=== PATIENT | female | born 1970 | race Caucasian/White ===

== ENCOUNTER → 2018-10-02 11:44 | Outpatient (CLI) | payer OTHER, SELFPAY ==
--- NOTE | 2018-10-02 11:45 | DI.US.S_ITS ---
PROCEDURE: US ABDOMEN COMPLETE INDICATIONS: RIGHT UPPER QUADRANT PAIN WITH BLOATING TECHNIQUE: Real-time scanning was performed of the abdominal and retroperitoneal organs, with image documentation. COMPARISON: [facility], US, ABDOMEN COMPLETE, 02/17/2016, 8:31. FINDINGS: Liver: Liver is normal in size and homogeneous in echotexture. Echogenic right hepatic lobe mass unchanged measuring 1.2 x 0.9 x 0.9 cm. Gallbladder: No gallstones identified. Normal gallbladder wall. No pericholecystic fluid. Negative sonographic Packer sign. Biliary ducts: Intrahepatic bile ducts are non-dilated. Extrahepatic bile duct caliber measures 5.5 mm. Normal is 6-7 mm or less in diameter, or 10 mm or less post-cholecystectomy. Pancreas: Visualized portions of the pancreas are sonographically normal. Spleen: Spleen is normal in size and homogeneous in echotexture. Kidneys: Kidneys are normal in size and echotexture. Right kidney measures 8.9 cm long; left kidney measures 9.5 cm long. No hydronephrosis or nephrolithiasis. No solid masses. Aorta: Visualized aorta is normal in caliber at less than 3 cm. Iliacs: Proximal common iliac arteries are normal in caliber at less than 2.5 cm. IVC: Intrahepatic inferior vena cava is patent. Miscellaneous: No free abdominal fluid. IMPRESSION: 1. Presumed cavernous hemangioma within the right hepatic lobe unchanged from prior examination dated 02/17/2016. 2. No source for right upper quadrant pain identified. Dictated by: Tom Roper A Interpreted: Mila Bocanegra MD on 10/02/2018 at 15:08 Approved by: Mila Bocanegra MD, PhD on 10/02/2018 at 18:18
== END ==
PROVIDERS: PCP Physician Assistant; Visit Provider Physician Assistant
DX: R10.11 Right upper quadrant pain (principal); R14.0 Abdominal distension (gaseous)
CPT/HCPCS: 76700

== ENCOUNTER → 2018-12-27 08:20 | Outpatient (CLI) | payer OTHER, SELFPAY ==
[2018-12-27 09:08] LABS: Alanine Aminotransferase 24 IU/L (9-52); Albumin 4.7 g/dL (3.5-5.0); Albumin Globulin Ratio 1.7 (1.0-2.8); Alkaline Phosphatase 46 U/L (38-126); Aspartate Aminotransferase 26 IU/L (14-36); BUN Creatinine Ratio 12.5 (6-22); Bilirubin Total 0.5 mg/dL (0.2-1.3); Blood Urea Nitrogen 10 mg/dL (7-17); Calcium 9.2 mg/dL (8.4-10.2); Carbon Dioxide 28 mmol/L (22-32); Chloride 101 mmol/L (98-107); Cholesterol 266 mg/dL (140-199); Estimated Glomerular Filt Rate > 60.0 mL/min (>60); Globulin 2.7 g/dL (1.7-4.1); Glucose 92 mg/dL (70-100); HDL Cholesterol 75 mg/dL (40-60); HEMOLYSIS < 15 (0-50); LDL Cholesterol Calculated 173 mg/dL (<100); Potassium 3.8 mmol/L (3.4-5.1); Sodium 138 mmol/L (137-145); Total Protein 7.4 g/dL (6.3-8.2); Triglycerides 92 mg/dL (35-150)
[2018-12-27 09:43] LABS: Vitamin D 25 Hydroxy (D3) 36.8 ng/mL (30.0-100.0)
[2018-12-27 09:57] LABS: Vitamin B12 518 pg/mL (239-931)
== END ==
PROVIDERS: PCP Physician Assistant; Visit Provider Physician Assistant
DX: E55.9 Vitamin D deficiency, unspecified (principal); L40.9 Psoriasis, unspecified; E53.8 Deficiency of other specified B group vitamins
CPT/HCPCS: 36415; 80053; 80061; 82306; 82607

== ENCOUNTER → 2019-10-25 13:56 | Outpatient (CLI) | payer OTHER, SELFPAY ==
--- NOTE | 2019-10-25 13:57 | DI.MG.S_ITS ---
BILATERAL DIGITAL SCREENING MAMMOGRAM 3D/2D WITH CAD: 10/25/2019 CLINICAL: Routine screening. Comparison is made to exam dated: 06/23/2015 mammogram - [facility]. The tissue of both breasts is heterogeneously dense. This may lower the sensitivity of mammography. Current study was also evaluated with a Computer Aided Detection (CAD) system. No significant masses, calcifications, or other findings are seen in either breast. There has been no significant interval change. IMPRESSION: NEGATIVE There is no mammographic evidence of malignancy. A 1 year screening mammogram is recommended. This exam was interpreted at Station ID: [id number]. NOTE: For mammograms, a report in lay terms will be sent to the patient. Approximately 15% of breast malignancies will not be visualized mammographically. In the management of a palpable breast mass, a negative mammogram must not discourage biopsy of a clinically suspicious lesion. Electronically Signed By: Paulo gomez/jo:10/27/2019 17:25:57 letter sent: Normal Exam ACR BI-RADS Category 1: Negative [id number]
== END ==
PROVIDERS: PCP Physician Assistant; Visit Provider Physician Assistant
DX: Z12.31 Encounter for screening mammogram for malignant neoplasm of breast (principal)
CPT/HCPCS: 77063; 77067

== ENCOUNTER 2019-12-13 09:45 | Emergency (ER) | payer OTHER, SELFPAY ==
[2019-12-13 10:10] VITALS: BP 129/60; PULSE 67; RESP 18; TEMP 36.6; O2SAT 100; BMI 21.8
[2019-12-13 11:28] LABS: Add Manual Diff / Slide Review NO; Basophils Absolute Auto 100 /uL (0-100); Basophils Percent Auto 0.8 % (0-2); Eosinophils Absolute Auto 100 /uL (0-450); Eosinophils Percent Auto 0.9 % (2-4); Hematocrit 38.5 % (36-46); Hemoglobin 12.9 g/dL (12.0-16.0); Lymphocytes Absolute Auto 1700 /uL (1100-4500); Lymphocytes Percent Auto 25.2 % (25-40); Mean Corpuscular HGB Conc 33.5 % (30-36); Mean Corpuscular Hemoglobin 31.6 PG (26-34); Mean Corpuscular Volume 94.2 fL (80-100); Monocytes Absolute Auto 400 /uL (0-900); Monocytes Percent Auto 6.3 % (3-14); Neutrophils Absolute Auto 4500 /uL (1500-7000); Neutrophils Percent Auto 66.8 % (50-75); Platelet Count 264 X10^3/uL (150-400); Red Blood Cell Count 4.09 X10^6/uL (4.0-5.2); Red Cell Distribution Width 12.8 % (11.6-14.8); White Blood Cell Count 6.8 X10^3/uL (4.5-11.0)
--- NOTE | 2019-12-13 11:32 | DI.US.S_ITS ---
PROCEDURE: US ABDOMEN LIMITED INDICATIONS: RIGHT UPPER QUADRANT PAIN TECHNIQUE: Real-time focused scanning was performed of the abdomen, with image documentation. COMPARISON: None. FINDINGS: The liver has a normal echo pattern. Diffusely echogenic lesion in the right lobe measuring 1.2 cm in maximum diameter has the sonographic appearance of a hemangioma. Gallbladder is unremarkable. No gallstones. No gallbladder wall thickening. No dilated ducts. Common duct measures 4.6 mm. Visualized portions of the pancreas are unremarkable IMPRESSION: 1. Incidental hemangioma of the liver. 2. Otherwise unremarkable right upper quadrant ultrasound. Dictated by: Eric Gifford M.D. on 12/13/2019 at 12:49 Approved by: Eric Gifford M.D. on 12/13/2019 at 12:50
--- NOTE | 2019-12-13 11:34 | ED_ITS ---
HPI - Abdominal Pain General Chief Complaint: Abdominal Pain Stated Complaint: Abd pain Time Seen by Provider: 12/13/19 11:18 Source: patient Mode of arrival: Ambulatory History of Present Illness HPI narrative: CC: Right upper quadrant abdominal pain. HPI: The patient is a 49-year-old female comes into the emergency department complaining that she has right upper quadrant pain that she believes is secondary to gallstones. She denies that she has been diagnosed to have gallstones. She admits having a history of fibromyalgia and does not take any medications for pain relief. She manages it naturally. She stated that her pain in the right upper quadrant started on Sunday and has persisted since then. It possibly may be worse with eating. She states that she has chronic back pain unrelated to this but secondary to her fibromyalgia. She denies a history of pancreatitis peptic ulcer disease. She has had nausea without vom iting denies any diarrhea. She has had normal bowel movements. There has been no melena or hematochezia. She denies any fall or injury fever chills or sweats. She is going through menopause and complains of hot flashes. She denies any significant shortness of breath or cough. She has had no melena hematochezia and no urinary symptoms. She does not want any narcotics. Related Data Previous Rx's Medication Instructions Recorded cyanocobalamin (vitamin B-12) 1,000 mcg IM X1 #1 ea 04/19/18 1,000 mcg/mL injection solution dicyclomine 20 mg PO TID #15 tab 12/13/19 ibuprofen 600 mg PO Q6H PRN #20 tab 12/13/19 Allergies Allergy/AdvReac Type Severity Reaction Status Date / Time amoxicillin [AMOXICILLIN] Allergy Severe Hives, Verified 10/08/19 10:30 lethargy, chest pain and throbbing in hands and feet epinephrine [EPINEPHRINE] Allergy Severe HEART Verified 10/08/19 10:30 RACES, BLACK OUT gluten Allergy Severe Diarrhea, Verified 10/08/19 10:30 constipation, fatigue and bloating lactose [LACTOSE] Allergy Severe Diarrhea, Verified 10/08/19 10:30 abdominal cramps and inflammation Penicillins [PENICILLINS] Allergy Severe PASS OUT, Verified 10/08/19 10:30 HIVES Sulfa (Sulfonamide Allergy Severe HIVES, Verified 10/08/19 10:30 Antibiotics) SWOLLEN [SULFA (SULFONAMIDE TONGUE & ANTIBIOTICS)] DRYNESS IN MOUTH codeine [CODEINE] Allergy Intermediate Vomiting Verified 10/08/19 10:30 latex [LATEX] Allergy Intermediate ITCHY, Verified 10/08/19 10:30 Review of Systems Review of Systems Narrative: Her review of systems were all negative except for those mentioned in history of present illness. Patient History Medical History Allergic rhinitis (Chronic) Fibromyalgia (Chronic 2011) Gluten intolerance (Chronic) Psoriasis (Chronic) Shingles outbreak (Resolved 05/2017) Vitamin B deficiency (Chronic 10/2017) Surgical History History of tonsillectomy Status post delivery Status post delivery Status post discectomy Family History Father Age: 72 Heart disease Mental health problem Mother Age: 70 Heart disease High cholesterol Mental health problem Social History Smoking Status: Never smoker second hand exposure: No alcohol intake: current (1 drink a year) substance use type: does not use Smoking Status: Never smoker Exam Narrative Exam Narrative: PHYSICAL EXAM: CONSTITUTIONAL: Awake, Alert, Oriented, Coherent, Cooperative in NAD. Does not appear toxic or ill. HEAD: AT/NC EENT: PERRL, FROM of eyes, no discharge, Oral mucosa is moist and pink, posterior pharynx is without erythema or exudate. NECK: Supple, no obvious JVD, Trachea is midline without stridor, no palpable LN. SPINE: No gross deformity, no palpable tenderness of the cervical, thoracic, lumbar or sacral spine. No CVA tenderness. THORAX: No deformity, retractions, chest wall tenderness, . LUNGS: Clear with symmetrical breath sounds without respiratory distress HEART: Normal heart tones, regular rhythm and rate without murmur. ABDOMEN: The patient's abdomen is mildly tender in the right upper quadrant with minimal guarding no rebound no rigidity. The rest of her abdomen is soft nontender with normal bowel sounds. EXTREMITIES: No edema, cyanosis, deformity or tenderness. SKIN: No rash, bruising, petechiae or purpura. NEURO: Awake, alert, oriented, conversive, cranial nerves II-XII are symmetrical and normal, moves all 4 extremities and is ambulatory Initial Vital Signs Initial Vital Signs: Vital Signs Temperature 97.8 F 12/13/19 10:10 Pulse Rate 67 12/13/19 10:10 Respiratory Rate 18 12/13/19 10:10 Blood Pressure 129/60 12/13/19 10:10 Pulse Oximetry 100 12/13/19 10:10 Course Course Course Narrative: 1134: The patient states that she manages her fibromyalgia and pain naturally. She does not want any opiate narcotics for pain relief. She was informed that I would administer Zofran for the nausea and vomiting and Toradol for her pain and discomfort which are not narcotics. An ultrasound of her gallbladder and right upper quadrant has been ordered. 1251: The patient states that her pain has not changed since being administered the Toradol. We will administer 20 mg of Bentyl. Her ultrasound has been completed however the report remains pending. She was informed of this. 1317: ultrasound of the right upper quadrant reveals no galstones. will obtain a CT scan with contrast. 1408: CT remains pending 1445; CT reveals that the patient has a moderate amount of stool seen within the colon please correlate clinically . Appears constipated according to the radiologist. Orders Ordered: Discontinued Medications Dicyclomine HCl (Bentyl) 20 mg PO NOW ONE Stop: 12/13/19 12:51 Last Admin: 12/13/19 14:19 Dose: Not Given Documented by: ETHAN Ketorolac Tromethamine (Toradol) 30 mg IV NOW ONE Stop: 12/13/19 11:33 Last Admin: 12/13/19 12:00 Dose: 30 mg Documented by: ETHAN Ondansetron HCl (Zofran) 4 mg IV NOW ONE Stop: 12/13/19 11:33 Last Admin: 12/13/19 12:01 Dose: Not Given Documented by: ETHAN Vital Signs Vital signs: Vital Signs - 8 hr 12/13/19 10:10 12/13/19 13:00 Temperature 97.8 F Pulse Rate 67 61 Respiratory Rate 18 16 Blood Pressure 129/60 Blood Pressure [Right Arm] 91/57 L Pulse Oximetry 100 100 MDM - Abdominal Pain Medical Records Attestation: I reviewed the patient's medical records. Lab Data Attestation: I reviewed the patient's lab results. Result diagrams: 12/13/19 11:15 12/13/19 11:15 Labs: Lab Results 12/13/19 12/13/19 12/13/19 Range/Units 11:15 11:15 11:15 WBC 6.8 (4.5-11.0) X10^3/uL RBC 4.09 (4.0-5.2) X10^6/uL Hgb 12.9 (12.0-16.0) g/dL Hct 38.5 (36-46) % MCV 94.2 (80-100) fL MCH 31.6 (26-34) PG MCHC 33.5 (30-36) % RDW 12.8 (11.6-14.8) % Plt Count 264 (150-400) X10^3/uL Neut % (Auto) 66.8 (50-75) % Lymph % (Auto) 25.2 (25-40) % Williamson % (Auto) 6.3 (3-14) % Eos % (Auto) 0.9 L (2-4) % Baso % (Auto) 0.8 (0-2) % Neut # (Auto) 4500 (8877-3552) /uL Lymph # (Auto) 1700 (9289-1073) /uL Williamson # (Auto) 400 (0-900) /uL Eos # (Auto) 100 (0-450) /uL Baso # (Auto) 100 (0-100) /uL PT 11.8 (10.1-12.7) SECONDS INR 1.0 (0.9-1.3) APTT 34 (26.4-36.2) SECONDS Sodium 140 (137-145) mmol/L Potassium 3.7 (3.4-5.1) mmol/L Chloride 102 (98-107) mmol/L Carbon Dioxide 28 (22-32) mmol/L BUN 10 (7-17) mg/dL Creatinine 0.70 (0.52-1.04) mg/dL Estimated GFR > 60.0 (>60) mL/min BUN/Creatinine Ratio 14.3 (6-22) Glucose 86 (70-100) mg/dL Calcium 9.6 (8.4-10.2) mg/dL Total Bilirubin 0.6 (0.2-1.3) mg/dL AST 27 (14-36) IU/L ALT 13 (<35) IU/L Alkaline Phosphatase 59 (38-126) U/L Total Protein 8.2 (6.3-8.2) g/dL Albumin 5.2 H (3.5-5.0) g/dL Globulin 3.0 (1.7-4.1) g/dL Albumin/Globulin Ratio 1.7 (1.0-2.8) Lipase 90 (23-300) U/L Point of care testing: Urine Dip Bedside Urine Glucose Negative Bedside Urine Bilirubin - Negative Bedside Urine Ketone - Negative Urine Specific [place] 1.005 Bedside Urine Occult Blood - Negative Bedside Urine pH 7.5 Bedside Urine Protein - Negative Bedside Urine Urobilinogen - Negative Bedside Urine Nitrite - Negative Bedside Urine Leukocytes - Negative Esterase ECG Data Attestation: I personally reviewed and interpreted this ECG as follows: Interpretation: The patient's EKG obtained on December 13 at 10:5 1:15 a.m. reveals a sinus bradycardia with a ventricular rate of 52. Intervals appear to be normal with a normal QTC. She has normal axis. She has an inverted T-wave in lead V1 no other acute diagnostic ST or T-wave changes. There is no evidence of ischemia. Discharge Plan Departure Patient Disposition: Home Clinical Impression: Abdominal pain, RUQ, Fibromyalgia Constipation Qualifiers: Constipation type: unspecified constipation type Qualified Code(s): K59.00 - Constipation, unspecified Discharge Date/Time: 12/13/19 15:48 Instructions: DI for Constipation Activity Restrictions/Additional Instructions: 1. Drink 2-4 liters of fluid per day 2. Use Bentyl 20 mg tablets 3 times a day as needed for abdominal pain and cramps. #15 3. Follow-up with your primary care physician. 4. Use MiraLax 17 g and below, 1-2 and the lobes per day until you start having bowel movements. Prescriptions: New dicyclomine 20 mg tablet 20 mg PO TID Qty: 15 RF: 0 ibuprofen 600 mg tablet 600 mg PO Q6H PRN (Reason: fever or pain) Qty: 20 RF: 0 No Action cyanocobalamin (vitamin B-12) 1,000 mcg/mL solution 1,000 mcg IM X1 Qty: 1 RF: 5 Referrals: Debbie Christianson PA-C [Primary Care Provider] -
[2019-12-13 11:35] LABS: Prothrombin Time 11.8 SECONDS (10.1-12.7)
[2019-12-13 11:38] LABS: PTT Partial Thromboplastin Tim 34 SECONDS (26.4-36.2)
[2019-12-13 11:40] LABS: Alanine Aminotransferase 13 IU/L (<35); Albumin 5.2 g/dL (3.5-5.0); Albumin Globulin Ratio 1.7 (1.0-2.8); Alkaline Phosphatase 59 U/L (38-126); Aspartate Aminotransferase 27 IU/L (14-36); BUN Creatinine Ratio 14.3 (6-22); Bilirubin Total 0.6 mg/dL (0.2-1.3); Blood Urea Nitrogen 10 mg/dL (7-17); Calcium 9.6 mg/dL (8.4-10.2); Carbon Dioxide 28 mmol/L (22-32); Chloride 102 mmol/L (98-107); Estimated Glomerular Filt Rate > 60.0 mL/min (>60); Glucose 86 mg/dL (70-100); HEMOLYSIS < 15 (0-50); Lipase 90 U/L (23-300); Potassium 3.7 mmol/L (3.4-5.1); Sodium 140 mmol/L (137-145); Total Protein 8.2 g/dL (6.3-8.2)
[2019-12-13] MEDS: KETOROLAC 60 MG/2 ML VIAL 30 MG IV (12:00)
--- NOTE | 2019-12-13 12:01 | PC.NURSE ---
refuses abdulkadir, states Im not nausous.
[2019-12-13 13:00] VITALS: BP 91/57; PULSE 61; RESP 16; O2SAT 100
--- NOTE | 2019-12-13 13:07 | PC.NURSE ---
pt refused library monitor
--- NOTE | 2019-12-13 13:18 | DI.CT.S_ITS ---
PROCEDURE: CT ABDOMEN PELVIS WO CON INDICATIONS: right flank and upper quadrant abdominal pain TECHNIQUE: Noncontrast 5 mm thick sections acquired from the diaphragms to the symphysis. 5 mm thick coronal and sagittal reformats were then performed. For radiation dose reduction, the following was used: automated exposure control, adjustment of mA and/or kV according to patient size. COMPARISON: [facility], , ABDOMEN LIMITED, 12/13/2019, 12:19. FINDINGS: Image quality: Excellent. Lung bases: Lung bases are clear. Heart size is normal. Urinary system: Both kidneys are normal in size. No kidney stones. No hydronephrosis or perinephric fat stranding. Both ureters appear non-dilated throughout their expected courses. Bladder wall thickness is normal; no calcified bladder stones. Other solid organs: Liver is normal in size. Gallbladder wall does not appear thickened. Pancreas is normal in contours. Spleen is normal in size. No adrenal nodules. Peritoneum and bowel: Unenhanced bowel loops demonstrate normal wall thickness and caliber. No free fluid or air. There is a moderate amount stool seen within the colon. Nodes and vessels: No retroperitoneal or mesenteric adenopathy by size criteria. Aorta and inferior vena cava are normal in caliber. Abdominal wall: No ventral hernias. Pelvis: No free pelvic fluid. No inguinal hernias or adenopathy. No significant uterine abnormality is seen. Cystic changes are seen of the adnexal regions, which are considered to be within physiologic limits. Bones: No suspicious bony lesions. No vertebral body compression fractures. IMPRESSION: No findings of stones or obstructive nephropathy can be seen. There is a moderate amount of stool seen within the colon. Please correlate with an underlying history of constipation. Dictated by: Felipe Wahl M.D. on 12/13/2019 at 13:25 Approved by: Felipe Wahl M.D. on 12/13/2019 at 13:28
--- NOTE | 2019-12-13 13:39 | PC.NURSE ---
discussed actions of bentyl in the gut. Patient did not want to take after scanning medication. Medication not given.
[2019-12-13 15:46] VITALS: BP 98/54; PULSE 64; RESP 18; O2SAT 100
== END 2019-12-13 15:48 | disposition home or self-care (01) ==
PROVIDERS: Emergency Provider Emergency Medicine; PCP Physician Assistant
DX: K59.00 Constipation, unspecified (principal); M79.7 Fibromyalgia; R10.11 Right upper quadrant pain
CPT/HCPCS: 36415; 74176; 76705; 80053; 81003; 83690; 85025; 85610; 85730; 93005; 96374; 99284; 99285; J1885

== ENCOUNTER 2024-07-05 00:58 | Emergency (ER) | payer OTHER, SELFPAY ==
[2024-07-05] VITALS (9 sets, daily range): BP systolic 113–134; BP diastolic 57–70; PULSE 58–65; RESP 12–18; TEMP 36.9; O2SAT 99–100; BMI 22.6
--- NOTE | 2024-07-05 01:12 | EKG_ITS ---
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
--- NOTE | 2024-07-05 01:12 | DI.RAD.S_ITS ---
PROCEDURE: XR CHEST 1V INDICATIONS: syncope TECHNIQUE: One view of the chest was acquired. COMPARISON: None. FINDINGS: Surgical changes and devices: Cervical spine fusion hardware. Lungs and pleura: Lungs are clear. No pleural effusions or pneumothorax. Mediastinum: Mediastinal contours appear normal. Heart size is normal. Bones and chest wall: No suspicious bony lesions. Overlying soft tissues appear unremarkable. IMPRESSION: No acute cardiopulmonary abnormality is seen. Dictated by: Daisy Thornton M.D. on 07/05/2024 at 1:48 Approved by: Daisy Thornton M.D. on 07/05/2024 at 1:48
[2024-07-05 01:23] LABS: Add Manual Diff / Slide Review NO; Basophils Absolute Auto 0 /uL (0-100); Basophils Percent Auto 0.3 % (0-2); Eosinophils Absolute Auto 0 /uL (0-450); Eosinophils Percent Auto 0.5 % (2-4); Hematocrit 32.2 % (36-46); Hemoglobin 11.1 g/dL (12.0-16.0); Lymphocytes Absolute Auto 600 /uL (1100-4500); Lymphocytes Percent Auto 12.6 % (25-40); Mean Corpuscular HGB Conc 34.5 % (30-36); Mean Corpuscular Hemoglobin 31.6 PG (26-34); Mean Corpuscular Volume 91.8 fL (80-100); Monocytes Absolute Auto 500 /uL (0-900); Monocytes Percent Auto 10.7 % (3-14); Neutrophils Absolute Auto 3700 /uL (1500-7000); Neutrophils Percent Auto 75.9 % (50-75); Platelet Count 174 X10^3/uL (150-400); Red Cell Distribution Width 12.9 % (11.6-14.8); White Blood Cell Count 4.9 X10^3/uL (4.5-11.0)
[2024-07-05] MEDS: SODIUM CHLORIDE 0.9% 1,000 ML 1000 ML IV (01:29)
--- NOTE | 2024-07-05 01:35 | ED.SYNCOPE ---
HPI - Syncope General Chief Complaint: Syncope Stated Complaint: near sycope Time Seen by Provider: 07/05/24 01:12 Source: patient and EMS Mode of arrival: EMS Limitations: no limitations History of Present Illness HPI narrative: Patient 53-year-old female history of fibromyalgia presents today with a syncopal episode. She been feeling well today. Some body aches and chills. She says sometimes it happens with her fibromyalgia. She was not feeling quite well. She had COVID about 4 weeks ago she said it really bad for her. She does not have any cough sore throat or fever. This evening she got up to go to the bathroom when she quickly passed out. She then started throwing up. She says that before she passed out she really sweaty and lightheaded. EMS also reports that she was diaphoretic upon arrival. No numbness tingling or weakness. She reports significant decreased appetite and food intake over the last day or so but is a very good water drinker and she reports she has been staying hydrated Related Data Previous Rx's Medication Instructions Recorded cyanocobalamin (vitamin B-12) 1,000 mcg IM X1 #1 ea 04/19/18 1,000 mcg/mL injection solution dicyclomine 20 mg tablet 20 mg PO TID #15 tabs 12/13/19 ibuprofen 600 mg tablet 600 mg PO Q6H PRN fever or pain 12/13/19 #20 tabs ondansetron 4 mg disintegrating 4 mg PO Q8H PRN nausea and 07/05/24 tablet vomiting #10 tabs Allergies Allergy/AdvReac Type Severity Reaction Status Date / Time amoxicillin [AMOXICILLIN] Allergy Severe Hives, Verified 10/08/19 10:30 lethargy, chest pain and throbbing in hands and feet epinephrine [EPINEPHRINE] Allergy Severe HEART Verified 10/08/19 10:30 RACES, BLACK OUT gluten Allergy Severe Diarrhea, Verified 10/08/19 10:30 constipation, fatigue and bloating lactose [LACTOSE] Allergy Severe Diarrhea, Verified 10/08/19 10:30 abdominal cramps and inflammation Penicillins [PENICILLINS] Allergy Severe PASS OUT, Verified 10/08/19 10:30 HIVES Sulfa (Sulfonamide Allergy Severe HIVES, Verified 10/08/19 10:30 Antibiotics) SWOLLEN [SULFA (SULFONAMIDE TONGUE & ANTIBIOTICS)] DRYNESS IN MOUTH codeine [CODEINE] Allergy Intermediate Vomiting Verified 10/08/19 10:30 latex [LATEX] Allergy Intermediate ITCHY, Verified 10/08/19 10:30 Patient History Medical History (Updated 07/05/24 @ 03:25 by Nirmala nKight DO) Vitamin B deficiency (10/2017) Gluten intolerance Shingles outbreak (05/2017) Allergic rhinitis Fibromyalgia (2011) Psoriasis Surgical History Status post discectomy Status post delivery Status post delivery History of tonsillectomy Family History Father Age: 76 Heart disease Mental health problem Mother Age: 74 Heart disease High cholesterol Mental health problem Social History Smoking Status: Former smoker second hand exposure: No alcohol intake: current (1 drink a year) substance use type: does not use Smoking Status: Former smoker alcohol intake frequency: 0-2 drinks per day Substance Use Type: does not use Exam Initial Vital Signs Initial Vital Signs: Vital Signs Temperature 98.4 F 07/05/24 01:02 Pulse Rate 65 07/05/24 01:02 Respiratory Rate 16 07/05/24 01:02 Blood Pressure 134/70 07/05/24 01:02 Pulse Oximetry 100 07/05/24 01:02 Oxygen Delivery Method Room Air 07/05/24 01:02 GENERAL: Alert pleasant 53-year-old female not feel and in [no acute] distress. HEENT: Head atraumatic,EOMI, pupils reactive, face symmetric, [moist] mucous membranes CARDIOVASCULAR: Regular rate and rhythm without murmurs, rubs or gallops. RESPIRATORY: Breath sounds equal bilaterally, no wheezes rales or rhonchi. ABDOMEN: Soft, nontender. Normoactive bowel sounds all 4 quadrants. No guarding or rebound. : No CVA tenderness EXTREMITIES: Normal range of motion, no clubbing or edema. Neurovascularly intact NEUROLOGICAL: Alert and oriented x4.Normal gait and speech. Cranial nerves II through XII grossly intact. SKIN: Warm, dry, no laceration, no petechiae, no rashes or lesions. Course Orders Ordered: ED Orders 07/05/24 01:09 Complete Blood Count AUTO DIFF Stat Comprehensive Metabolic Panel Stat Lipase Stat Troponin & CK Cardiac Panel Stat 07/05/24 01:12 XR chest 1V Stat EKG-12 Lead Stat Discontinued Medications Sodium Chloride (Normal Saline 0.9%) 1,000 mls @ 1,000 mls/hr IV BOLUS ONE Stop: 07/05/24 02:11 Last Infusion: 07/05/24 02:29 Dose: Infused Documented By: Admin: 07/05/24 01:29 Dose: 1,000 mls/hr Documented By: MARI Ondansetron HCl (Ondansetron 4 Mg Odt Prepack) 1 bottle MISC DIRECTED ONE Stop: 07/05/24 03:27 Last Admin: 07/05/24 03:52 Dose: 1 bottle Documented By: MARI Vital Signs Vital signs: Vital Signs - 8 hr 07/05/24 01:02 07/05/24 01:03 07/05/24 01:30 Temperature 98.4 F 98.5 F Pulse Rate 65 63 62 Respiratory Rate 16 Blood Pressure 134/70 Pulse Oximetry 100 100 99 Oxygen Delivery Method Room Air 07/05/24 01:32 07/05/24 01:32 07/05/24 02:00 Temperature Pulse Rate 58 L 61 Respiratory Rate 14 18 Blood Pressure 127/60 Pulse Oximetry 100 100 Oxygen Delivery Method 07/05/24 02:00 07/05/24 02:30 07/05/24 02:30 Temperature Pulse Rate 62 Respiratory Rate 15 Blood Pressure 119/65 118/57 L Pulse Oximetry 100 Oxygen Delivery Method 07/05/24 02:45 07/05/24 02:45 07/05/24 03:00 Temperature Pulse Rate 61 Respiratory Rate 16 Blood Pressure 124/62 117/65 Pulse Oximetry 100 Oxygen Delivery Method 07/05/24 03:00 07/05/24 03:30 07/05/24 03:30 Temperature Pulse Rate 61 62 Respiratory Rate 14 12 Blood Pressure 113/59 L Pulse Oximetry 100 99 Oxygen Delivery Method MDM - Syncope Lab Data 07/05/24 01:09 07/05/24 01:09 Labs: Lab Results 07/05/24 Range/Units 01:09 WBC 4.9 (4.5-11.0) X10^3/uL RBC 3.50 L (4.0-5.2) X10^6/uL Hgb 11.1 L (12.0-16.0) g/dL Hct 32.2 L (36-46) % MCV 91.8 (80-100) fL MCH 31.6 (26-34) PG MCHC 34.5 (30-36) % RDW 12.9 (11.6-14.8) % Plt Count 174 (150-400) X10^3/uL Neut % (Auto) 75.9 H (50-75) % Lymph % (Auto) 12.6 L (25-40) % [place]undy % (Auto) 10.7 (3-14) % Eos % (Auto) 0.5 L (2-4) % Baso % (Auto) 0.3 (0-2) % Neut # (Auto) 3700 (5950-3186) /uL Lymph # (Auto) 600 L (3008-4253) /uL Grundy # (Auto) 500 (0-900) /uL Eos # (Auto) 0 (0-450) /uL Baso # (Auto) 0 (0-100) /uL Sodium 131 L (137-145) mmol/L Potassium 3.5 (3.4-5.1) mmol/L Chloride 103 (98-107) mmol/L Carbon Dioxide 23 (22-32) mmol/L BUN 8 (7-17) mg/dL Creatinine 0.68 (0.52-1.04) mg/dL Estimated GFR > 60 (>60) mL/min BUN/Creatinine Ratio 11.8 (6-22) Glucose 92 (70-100) mg/dL Calcium 8.0 L (8.4-10.2) mg/dL Total Bilirubin 0.3 (0.2-1.3) mg/dL AST 26 (14-36) IU/L ALT 17 (<35) IU/L Alkaline Phosphatase 65 (38-126) U/L Total Creatine Kinase 37 (30-135) U/L Troponin I < 0.012 (0.01-0.034) ng/mL Total Protein 6.0 L (6.3-8.2) g/dL Albumin 3.5 (3.5-5.0) g/dL Globulin 2.5 (1.7-4.1) g/dL Albumin/Globulin Ratio 1.4 (1.0-2.8) Lipase 76 (23-300) U/L Point of Care Testing Test Results Negative Urine Dip Bedside Urine Glucose Negative Bedside Urine Bilirubin - Negative Bedside Urine Ketone ++ 40 Urine Specific [place] 1.015 Bedside Urine Occult Blood - Negative Bedside Urine pH 6.5 Bedside Urine Protein - Negative Bedside Urine Urobilinogen - Negative Bedside Urine Nitrite - Negative Bedside Urine Leukocytes - Negative Esterase Imaging Data Chest x-ray: Radiologist's Impression: PROCEDURE: XR CHEST 1V INDICATIONS: syncope TECHNIQUE: One view of the chest was acquired. COMPARISON: None. FINDINGS: Surgical changes and devices: Cervical spine fusion hardware. Lungs and pleura: Lungs are clear. No pleural effusions or pneumothorax. Mediastinum: Mediastinal contours appear normal. Heart size is normal. Bones and chest wall: No suspicious bony lesions. Overlying soft tissues appear unremarkable. IMPRESSION: No acute cardiopulmonary abnormality is seen. Dictated by: Daisy Thornton M.D. on 07/05/2024 at 1:48 ECG Data Attestation: I personally reviewed and interpreted this ECG as follows: Prior ECG tracings: available for review Interpretation: Normal sinus rhythm rate 65 MT interval 136 QRS 76 QTC 430 8 PVC noted no acute ST changes similar to prior MDM Narrative Medical decision making narrative: MDM CC: Syncope Complicating co-morbidities: Fibromyalgia Data collected from: EMS and family Differential considered: Equal CVA cardiac neurogenic Exam documented above, pertinent findings include: Strength equal bilaterally mildly pale but color improved, no lower extremity edema Lab Test results independently reviewed as above. Pertinent findings: CBC no anemia or leukocytosis CMP sodium 131 creatinine 0.68 Troponin negative POC negative Independently reviewed EKG as above sinus rhythm with PVC no ischemia Imaging studies independently reviewed: X-ray no acute cardiopulmonary process Consultations: none Treatments: IV fluids Re-evaluations: Patient has been up to the restroom multiple times not dizzy or lightheaded received 2 L of IV fluid. Neurologically intact overall feeling much better Discussion: Patient 53-year-old female history of fibromyalgia presenting today with body aches weakness and syncopal episode. It sounds as though she stood up and quickly fell down consistent with a vasovagal reaction. There is no evidence of anemia BRITTANY or electrolyte abnormality. She does not have any leukocytosis or documented fever. No evidence of a UTI. We briefly discussed rechecking for COVID but she just had it 4 weeks ago so it does not seem reasonable to check her again. She is neurologically intact not on anticoagulation. No need for head imaging she has no evidence of head trauma on exam. Discussed with her supportive measures and when to return to ED Discharge Plan Departure Patient Disposition: Home Clinical Impression: Vasovagal syncope Instructions: DI for Syncope in Adults (Fainting) Activity Restrictions/Additional Instructions: *You have been diagnosed with syncopal episode *What to do: At this time go home take it easy and rest be sure to stay hydrated avoid the heat *Continue to take medications as directed Zofran 4 mg every 8 hours if needed for nausea or vomiting *Follow up with your primary care provider in 2-3 days or call [phone] *Return to ER if you should have recurrent episode of syncope numbness tingling weakness worsening confusion persistent vomiting or any new, worsening or concerning symptoms Prescriptions: New ondansetron 4 mg tablet,disintegrating 4 mg PO Q8H PRN (Reason: nausea and vomiting) Qty: 10 0RF No Action cyanocobalamin (vitamin B-12) 1,000 mcg/mL solution 1,000 mcg IM X1 Qty: 1 5RF dicyclomine 20 mg tablet 20 mg PO TID Qty: 15 0RF ibuprofen 600 mg tablet 600 mg PO Q6H PRN (Reason: fever or pain) Qty: 20 0RF Referrals: Radha Casarez, NATALIE, [employer] MACHINE OPERATOR [Primary Care Provider] - Stand Alone Forms: Patient Portal/API
[2024-07-05 01:46] LABS: Alanine Aminotransferase 17 IU/L (<35); Albumin 3.5 g/dL (3.5-5.0); Albumin Globulin Ratio 1.4 (1.0-2.8); Alkaline Phosphatase 65 U/L (38-126); Aspartate Aminotransferase 26 IU/L (14-36); BUN Creatinine Ratio 11.8 (6-22); Bilirubin Total 0.3 mg/dL (0.2-1.3); Blood Urea Nitrogen 8 mg/dL (7-17); Carbon Dioxide 23 mmol/L (22-32); Chloride 103 mmol/L (98-107); Creatine Kinase 37 U/L (30-135); Estimated Glomerular Filt Rate > 60 mL/min (>60); Globulin 2.5 g/dL (1.7-4.1); Glucose 92 mg/dL (70-100); HEMOLYSIS < 15 (0-50); Lipase 76 U/L (23-300); Potassium 3.5 mmol/L (3.4-5.1); Sodium 131 mmol/L (137-145)
[2024-07-05 01:58] LABS: Troponin I < 0.012 ng/mL (0.01-0.034)
[2024-07-05] MEDS: ONDANSETRON 4 MG ODT PREPACK 1 BOTTLE MISC (03:52)
== END 2024-07-05 04:02 | disposition home or self-care (01) ==
PROVIDERS: Emergency Provider Emergency Medicine; PCP Nurse Practitioner Family
DX: R55 Syncope and collapse (principal); R42 Dizziness and giddiness; Z86.16 Personal history of COVID-19; M79.7 Fibromyalgia
CPT/HCPCS: 71045; 80053; 81003; 81025; 82550; 83690; 84484; 85025; 93005; 93010; 96360; 99284

== ENCOUNTER → 2024-08-18 08:15 | Outpatient (CLI) | payer OTHER, SELFPAY ==
--- NOTE | 2024-08-18 08:18 | DI.ECHO.S_ITS ---
[facility] : : [address] : : [place] : : [id number] : : Phone: [phone] Echocardiogram Report + + :Name: JUNE STORM Study Date: 08/18/2024 Height: 59 in : :[facility] : Weight: 104 lb : : Gender: Female BSA: 1.4 m2 : :: 1970 Age: 54 yrs BP: 126/76 mmHg: :Reason For Study: SYNCOPE AND COLLAPSE : :Ordering Physician: : :DEYVI LOCO Performed By: Larry Lehman : :Referring: UNSPECIFIED : + + Interpretation Summary 1. The left ventricular contractility is normal. Estimate ejection fraction is greater than 55% with no segmental wall motion abnormalities. No LVH. Normal diastolic function. 2. The right ventricle contractility is normal. 3. The left atrium is mildly dilated. All other cardiac chambers are of normal size. 4. No significant valvular abnormalities. 5. No obvious intracardiac shunts. 6. No obvious ventricular masses nor thrombi. 7. No hemodynamically significant pericardial effusion. 8. Low right-sided filling pressures. Conclusion: Normal biventricular function with no significant valvular abnormalities. Procedure: A two-dimensional transthoracic echocardiogram with color flow and Doppler was performed. The study quality was technically good. There is no prior echocardiogram noted for this patient. The patient was in normal sinus rhythm during the exam. Left Ventricle: The left ventricle is normal in size. There is normal left ventricular wall thickness. There is no ventricular septal defect visualized. The ejection fraction is estimated to be 60-65%. There are no focal wall motion abnormalities. Right Ventricle: The right ventricle is normal in size and function. Atria: The left atrium is mildly dilated. Right atrial size is normal. There is no Doppler evidence for an atrial septal defect. Mitral Valve: The mitral valve is normal in structure and function. There is trace mitral regurgitation. Aortic Valve: The aortic valve is trileaflet. The aortic valve opens well. No aortic regurgitation is present. Tricuspid Valve: The tricuspid valve is normal in structure and function. There is trace tricuspid regurgitation. Pulmonic Valve: The pulmonic valve is normal in structure and function. There is trace pulmonic regurgitation. Great Vessels: The aortic root is normal size. The dimensions of the ascending aorta are normal. The pulmonary artery is normal size. The IVC is of normal diameter and collapses greater than 50% with a sniff. This suggests a low right atrial pressure of 3 mm Hg. Pericardium/ Pleura There is no pericardial effusion. There is no pleural effusion. MMode/2D Measurements & Calculations LVIDd: 4.5 cm LVOT diam: 1.8 cm LVIDs: 2.9 cm Ao root diam: 2.4 cm FS: 35.6 % asc Aorta Diam: 3.0 cm EPSS: 0.39 cm Ao Arch Diam (Prox Trans): 1.6 cm IVSd: 0.68 cm LVPWd: 0.63 cm LV colindres. diameter/BSA (cm/m^2): 3.2 LV sys. diameter/BSA (cm/m^2): 2.1 LA A2 area: 18.0 cm2 RA long axis: 3.6 cm LA A4 area: 19.0 cm2 RA area: 9.5 cm2 LA length (vol): 5.2 cm RA vol: 21.5 ml LA vol: 56.2 ml RA : 15.4 ml/m2 LA vol index: 40.2 ml/m2 IVC diam: 1.7 cm RVD1 (basal): 3.3 cm RVD2 (mid): 2.5 cm TAPSE: 2.8 cm Doppler Measurements & Calculations Ao V2 max: 153.8 cm/sec LVOT Max Shon: 104.1 cm/sec Ao V2 mean: 109.2 cm/sec LV V1 max P.3 mmHg Ao max P.5 mmHg LV V1 VTI: 23.0 cm Ao mean P.3 mmHg JHOAN(I,D): 1.5 cm2 Ao V2 VTI: 38.6 cm JHOAN(V,D): 1.7 cm2 sev ratio: 0.59 JHOAN indexed to BSA (cm^2/m^2): 1.1 MV E max shon: 76.8 cm/sec PA V2 max: 94.9 cm/sec MV A max shon: 40.2 cm/sec PA V2 mean: 67.9 cm/sec MV E/A: 1.9 PA mean P.0 mmHg Med Peak E' Shon: 11.4 cm/sec PA pr(Accel): 10.5 mmHg E/E' med: 6.8 Lat Peak E' Shon: 13.8 cm/sec E/E' lat: 5.6 E/e' average: 6.2 MV dec time: 0.23 sec SV(LVOT): 58.6 ml Reading Physician:
== END ==
PROVIDERS: PCP Nurse Practitioner Family; Referring Provider Nurse Practitioner Family; Visit Provider Nurse Practitioner Family
DX: R55 Syncope and collapse (principal)
CPT/HCPCS: 93306